=== PATIENT | female | born 1995 | race Caucasian/White ===

== ENCOUNTER 2016-11-11 23:48 | Emergency (ER) | payer SELFPAY ==
[~2016-11-11] VITALS: Ht 154.9 cm; Wt 56.0 kg
[~2016-11-11 23:48] MED LIST: MMW SWISH-SPIT; PENVK500 PO; Z.0.BCPILL PO
[2016-11-11 23:50] VITALS: BP 144/74; PULSE 91; RESP 15; TEMP 98.7; O2SAT 100
--- NOTE | 2016-11-12 00:20 | PD ---
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 She is a picture on her cell phone. States she is on her menstrual cycle now. She took plan B a couple days ago. She's used this before. She states that she's had some bleeding and then a little bit of cramping earlier today. When she went to the bathroom she should past abnormal tissue-like substance that she didn't think was a blood clot. She states she otherwise been feeling healthy. She sexually active. She is a 2 male partners in the past 6 months. No history of . No history of [facility] surgery. One previous pelvic exam. No other complaints. History Past Medical History Medical History: Denies Significant Hx LMP: CURRENT : 0 Para: 0 Social History Alcohol Use: Yes (RARE) Tobacco Use: No Allergies-Medications (Allergen,Severity, Reaction): Coded Allergies: No Known Allergies (Verified , 11/12/16) Reported Meds & Prescriptions Reported Meds & Active Scripts Active Review of Systems Except as stated in HPI: all other systems reviewed are Neg Physical Exam Narrative GENERAL: Well-appearing 21-year-old, no acute distress. SKIN: Focused skin assessment warm/dry. HEAD: Atraumatic. Normocephalic. CARDIOVASCULAR: Warm and well perfused. RESPIRATORY: Normal rate and effort. GASTROINTESTINAL: Abdomen soft, non-tender, nondistended. GENITOURINARY: Normal external genitalia without lesions or erythema. Vaginal vault with a moderate amount of blood. Cervical os was closed without drainage. No cervical motion tenderness. Uterus nontender and nonenlarged. Bilateral adnexa nontender without masses. Data Data Last Documented VS Vital Signs Date Time Temp Pulse Resp B/P (MAP) Pulse Ox O2 Delivery O2 Flow Rate FiO2 11/11/16 23:50 98.7 91 15 144/74 (97) 100 Room Air Orders Orders Ed Urine Pregnancytest Poc (11/12/16 00:13) Gc And Chlamydia Pcr (11/12/16 00:19) Wet Prep Profile (11/12/16 00:19) MDM Medical Decision Making Medical Screen Exam Complete: Yes Emergency Medical Condition: Yes Interpretation(s) HCG negative. Differential Diagnosis Menorrhagia, hormonal changes, other Narrative Course Medical decision making 21 year-old woman, abnormal discharge per vagina. We'll check , exam. It sounds like this was a one-time abnormal discharge. She is not having any pelvic infectious symptoms. Recommend outpatient [facility] follow-up. Diagnosis Primary Impression: Vaginal discharge, bloody Additional Instructions: Follow-up with your childcare aide for repeat evaluation. Return to the emergency department for any new or worsening symptoms. Med/Other Pt SpecificInfo: No Change to Meds Disposition: 01 DISCHARGE HOME Condition: Stable Yaya Rosen MD Nov 12, 2016 00:20
[2016-11-12 02:27] LABS: CHLAMYDIA PCR NOT DETECTED (NOT DETECT); NEISSERIA PCR NOT DETECTED (NOT DETECT)
== END 2016-11-12 01:04 | disposition home or self-care (01) ==
LOC: NEPD 23:48
DX: N89.8 Other specified noninflammatory disorders of vagina (principal)
CPT/HCPCS: 84703; 87210; 87491; 87591; 99283